=== PATIENT | female | born 1985 | race Two or more races ===

== ENCOUNTER 2022-11-30 19:27 | Emergency (ER) | payer MEDICAID, OTHER ==
[~2022-11-30] VITALS: Ht 154.9 cm; Wt 52.2 kg
--- NOTE | 2022-11-30 20:00 | NUR ---
BIBS C/O R SHOULDER PAIN RADIATING TO ELBOWX2 WEEKS NOT RELIEVED BY OTC MEDS. PT IS AAO X 4, BREATHING UNLABORED. PT DENIES TRAUMA. STATES PAIN IS 10/10 WITH ACTIVITY AND ABOUT 8/10 AT REST. PT ATTACHED TO MONITOR AND PULSE OX. AWAITING TO BE SEEN BY
--- NOTE | 2022-11-30 20:10 | NUR ---
PATIENT SIGNED WAIVER, PLACED ON CHART
[2022-11-30] MEDS ORDERED: KETOROLAC TROMETHAMINE INJ 30 MG/ML VIAL ONE (20:12)
[2022-11-30] MEDS ORDERED: KETOROLAC TROMETHAMINE INJ 60 MG/2 ML VIAL IM ONE (20:30)
--- NOTE | 2022-11-30 20:44 | NUR ---
SILK SCREEN REPAIRER AT BEDSIDE
--- NOTE | 2022-11-30 21:26 | NUR ---
CALLED RADIOLOGY TO RESHOOT XRAY R ELBOW WITH LATERAL VIEW
--- NOTE | 2022-11-30 21:32 | NUR ---
SOCIAL MEDIA EDITOR AT PT'S BEDSIDE
[2022-11-30] MEDS ORDERED: IBUP-1955 PO (21:47)
[2022-11-30 22:06] VITALS: BP 140/80
--- NOTE | 2022-11-30 22:06 | NUR ---
Patient discharged to home in stable condition. Written and verbal after care instructions given. Patient verbalizes understanding of instruction.
== END 2022-11-30 22:06 | disposition home or self-care (01) ==
LOC: ER 19:49
DX: M25.511 Pain in right shoulder (principal); M25.521 Pain in right elbow
CPT/HCPCS: 99284; 96372; 73080; 73070; 73030; J1885